=== PATIENT | male | born 2000 | race Hispanic/Latino ===

== ENCOUNTER 2018-09-15 14:44 | Emergency (ER) | payer SELFPAY ==
[2018-09-15] MEDS ORDERED: NA BORATE/BORIC AC/H2O/NACL 120 ML OPHTH IRRIG SOLN ONE (15:06)
[2018-09-15] MEDS ORDERED: TETRACAINE HCL 0.5% 4 ML OPHTH SOLN ONE (15:06)
[2018-09-15] MEDS ORDERED: FLUORESCEIN SODIUM 1 STRIP STRIP ONE (15:06)
[2018-09-15] MEDS ORDERED: GENTAMICIN SULFATE 0.3% 5ML DROPS ONE (15:24)
== END 2018-09-15 15:46 | disposition home or self-care (01) ==
LOC: EDH 14:44
DX: S05.02XA Injury of conjunctiva and corneal abrasion without foreign body, left eye, initial encounter (principal); Z98.890 Other specified postprocedural states; W22.8XXA Striking against or struck by other objects, initial encounter; Y93.89 Activity, other specified; Y92.89 Other specified places as the place of occurrence of the external cause; Y99.8 Other external cause status